=== PATIENT | male | born 1940 | race Caucasian/White ===

== ENCOUNTER → 2016-10-23 | Outpatient (CLI) | payer MEDICARE ==
[2014-10-01 10:26] VITALS: BP 113/76
[~2016-10-23] MED LIST: AMLO5TAB2 PO; ASPI-482 PO; OMEG500C3 PO; OMEP20CA9 PO; VALS160T3 PO
--- NOTE | 2016-10-23 09:28 | KCIC ---
PROCEDURE MRI lumbar spine without contrast. HISTORY Low back pain with bilateral quadriceps weakness, progressive leg weakness TECHNIQUE Sagittal and axial T1 and T2 and sagittal STIR images were acquired of the lumbar spine. Contrast: None COMPARISON None FINDINGS Lumbar vertebral body stature and AP alignment are preserved. Conus terminates at L1-L2. There is mild degenerative disc disease at L1-L2, mild disc desiccation at more inferior levels. There are anterior and posterior annular tears L2-3 and L4-5, posterior annular tear at L5-S1. There are hemangiomas of the L4, L1, and T12 vertebral bodies. There is no significant focal marrow edema. There is a 1.7 centimeter nonspecific soft tissue nodule on the left posteriorly in the subcutaneous fat at the level of L5. T12-L1: Spinal canal and neural foramina are adequate. L1-L2: There is negligible posterior bulge. Spinal canal and neural foramina are adequate. L2-3: There is negligible bulge. There is mild facet hypertrophic change and buckling of the ligamentum flavum. There is mild left lateral recess stenosis. Neural foramina are adequate. L3-4: There is moderate facet degenerative change and mild to moderate buckling of the ligamentum flavum. There is prominence of posterior epidural fat. There is negligible posterior bulge. There is minimal narrowing of the neural foramina bilaterally. There is mild narrowing of the far lateral recesses bilaterally. L4-5: There is mild to moderate buckling of the ligamentum flavum and mild facet hypertrophic change. There is minimal posterior bulge. There is mild neural foramina compromise bilaterally. There is mild narrowing of the far left lateral recess primarily from posteriorly. L5-S1: Spinal canal is adequate. Neural foramina are adequate. IMPRESSION 1. There is multilevel mild lateral recess stenosis as stated, no significant lumbar spinal stenosis. 2. There is mild degenerative disc disease L1-L2, mild disc desiccation at more inferior levels. There is mild spondylosis. 3. There is mild neural foramina compromise bilaterally at L3-4 and L4-5. 4. There is nonspecific nodule of the left posterior subcutaneous fat. Electronically signed by: Ramon Becker MD (Oct 23, 2016 09:27:10)
== END | disposition home or self-care (01) ==
LOC: KCIC MRI 08:21
PROVIDERS: ATTEND Internal Medicine
DX: M54.5 Low back pain (principal); R53.1 Weakness; M47.896 Other spondylosis, lumbar region; M51.36 Other intervertebral disc degeneration, lumbar region
CPT/HCPCS: 72148

== ENCOUNTER → 2017-01-24 | Outpatient (CLI) | payer MEDICARE ==
[2014-10-01 10:26] VITALS: BP 113/76
[~2017-01-24] MED LIST changes: +CONTRAST GIVEN MC PRN; +IOHEXOL 300 MG/ML 75 ML VIAL IV ONE
[2017-01-24 07:38] LABS: CREATININE 1.4 mg/dL (0.7-1.3); GFR 49.3
--- NOTE | 2017-01-24 09:38 | RAD ---
CT scan of the abdomen and pelvis without and with contrast (CT urogram protocol) 01/24/2017 Clinical history: Hematuria. Technique: Unenhanced, contiguous, 2 mm axial sections were obtained through the abdomen and pelvis. After the intravenous administration of 16 cc of Omnipaque, contiguous, 2 mm axial sections were obtained through the abdomen. Additionally contiguous, 2 mm axial sections were obtained through the abdomen and pelvis using a 10 minute delay. One or more of the following individualized dose reduction techniques were utilized for this study: 1. Automated exposure control. 2. Adjustment of the mA and/or kV according to patient size. 3. Use of iterative reconstruction technique. Findings: Images through the lung bases demonstrate mild cardiomegaly. Linear bands of subsegmental atelectasis are seen involving both lower lobes. On the unenhanced images no renal or ureteral calculus is seen. On the postcontrast images the liver, spleen, pancreas, and adrenal glands are within normal limits. Two small well-defined low-attenuation lesions are seen involving the midpole of the right kidney. These measure 1 cm in size. They most likely represent cysts. No focal abnormality of the left kidney is seen. There is no evidence of obstruction or duplication of either collecting system. The ureters are partially opacified with contrast on the delayed images. No focal abnormality of either ureter is seen. Mild to moderate scattered atherosclerotic plaque formation is seen involving the abdominal aorta. The abdominal aorta tapers normally. The gallbladder is well-distended. No free fluid or free air is seen within the abdomen. There is no evidence of bowel obstruction. The appendix is well visualized and is within normal limits. Images through the pelvis demonstrate the urinary bladder to be slightly contracted. It is partially filled with contrast on the delayed images. Mild diffuse wall thickening of the urinary bladder is seen which likely reflects hypertrophy related to bladder outlet obstruction. The prostate gland is enlarged likely related to BPH. It measures 6.6 x 5.3 x 5.2 cm in transverse, craniocaudal and AP dimensions. There is a moderate to large sized fat-containing right inguinal hernia which measures at least 9 cm in greatest craniocaudal dimensions. Calcifications are seen within the pelvis consistent with phleboliths. Minimal S shaped curvature of the thoracolumbar spine is seen. Degenerative changes are seen involving the lower thoracic and throughout the lumbar spine and both hips. Impression: 1. The prostate gland is enlarged likely related to BPH. 2. No acute abnormality is seen.
== END | disposition home or self-care (01) ==
LOC: CT 07:05
PROVIDERS: ATTEND Urology
DX: Z12.5 Encounter for screening for malignant neoplasm of prostate (principal); N40.0 Benign prostatic hyperplasia without lower urinary tract symptoms
CPT/HCPCS: 36415; 74178; 82565; G0103; Q9967

== ENCOUNTER 2017-08-21 09:37 | Observation (INO) | payer MEDICARE ==
[~2017-08-21] VITALS: Ht 190.5 cm; Wt 133.8 kg
[2017-08-21] VITALS (9 sets, daily range): BP systolic 97–130; BP diastolic 62–89
[~2017-08-21 09:37] MED LIST changes: +BUPIVACAINE-EPI 0.25%-1:200000 50 ML VIAL. ONE; -CONTRAST GIVEN MC PRN; +FINA1TAB3 PO; +HYDR-2758; +HYDROmorphone 2 MG/ML VIAL IV PRN; -IOHEXOL 300 MG/ML 75 ML VIAL IV ONE; +IV RINGERS,LACTATED 1000ML 1,000 ML IV SCH; +LIDOCAINE 1% PF 2 ML VIAL. ID PRN; +LOSA50TA6 PO; +METO-269 PO; +ONDANSETRON PF 4 MG/2 ML VIAL. IV PRN; +PROCHLORPERAZINE 10 MG/2 ML VIAL. IV PRN; +WARF10TA45 PO; +WARF7.5T48 PO; +fentaNYL PF VIAL 100 MCG/2 ML VIAL IV PRN
[2017-08-21] MEDS ORDERED: ONDANSETRON PF 4 MG/2 ML VIAL. ONE (09:55)
[2017-08-21] MEDS ORDERED: MIDAZOLAM HCL/PF 2 MG/2 ML VIAL. ONE (09:55)
[2017-08-21] MEDS ORDERED: ROCURONIUM 50 MG/5 ML VIAL. ONE (09:55)
[2017-08-21] MEDS ORDERED: DEXAMETHASONE SOD PHOS 20 MG/5 ML VIAL. ONE (09:55)
[2017-08-21] MEDS ORDERED: PROPOFOL 20 ML IV ONE (09:55)
[2017-08-21] MEDS ORDERED: LIDOCAINE 2% PF Vial for OR 5 ML VIAL. ONE (09:55)
[2017-08-21] MEDS ORDERED: fentaNYL PF VIAL 250 MCG/5 ML VIAL ONE (09:55)
[2017-08-21 11:02] LABS: INR 1.3 (0.8-1.1); PROTHROMBIN TIME PATIENT 15.8 SEC (11.7-14.0)
[2017-08-21] MEDS ORDERED: ROCURONIUM 100 MG/10 ML VIAL. ONE (11:35)
[2017-08-21] MEDS ORDERED: PHENYLEPHRINE in 0.9% NACL PF 1 MG/10 ML DISP.SYRIN. IV ONE (11:49)
[2017-08-21] MEDS ORDERED: GLYCOPYRROLATE 1 MG/5 ML VIAL. ONE (11:50)
[2017-08-21] MEDS ORDERED: NEOSTIGMINE 10 MG/10 ML VIAL. ONE (11:50)
[2017-08-21] MEDS ORDERED: SEVOFLURANE 61 TO 120 MINUTES. IH ONE (12:00)
--- NOTE | 2017-08-21 12:00 | PDOC4 ---
Operative Note Operative Note Date: 08/21/2017 Preoperative diagnosis: Recurrent right inguinal hernia Postoperative diagnosis: Same Procedure: Robotic-assisted laparoscopic right internal hernia repair with mesh Surgeon: Gelnn Specimen: None Dictation: Patient is a 76-year-old male who had a right inguinal hernia repair proximally 2 years ago he is describing some fullness in the scrotum underwent an ultrasound which showed a small recurrent right inguinal hernia with incarcerated fat. The procedure of robotic-assisted laparoscopic right inguinal hernia repair with mesh was explained to the patient detail was benefits were also discussed including bleeding infection injury to intra-abdominal contents possibly necessitating further or open operations alternatives to this procedure also discussed with the patient seemed understanding gave both verbal and written consent had procedure performed. Taken to the operating room placed in supine position general anesthesia was initiated once patient was asleep and intubated he was then placed in low lithotomy positioning and his abdomen was prepped and draped in usual sterile fashion using ChloraPrep. An area at the umbilicus injected quarter percent Marcaine with epinephrine incisions made lead blade scalpel varies needle was placed within the abdomen pneumoperitoneum was achieved once this complete a da Dariusz 8-1/2 mm port was placed and camera was placed within the abdomen was inspected. At this point a 8-1/2 mm da Dariusz port was placed in the left mid abdomen under direct visualization and one in the right mid abdomen under direct visualization. The da Dariusz robot was then brought in and docked to all ports and the surgeon went to the robotic console using a grasper and Endo Lizeth scissors the peritoneum was taken down on the right side creating a flap inferiorly past the hernia defect which was quite small but contain some adipose tissue which was reduced Pro sales clerk mesh was then placed over the hernia defect and the peritoneum was closed over the mesh with a running V lock 20 absorbable suture. The da Dariusz robot was undocked from all ports all ports removed the pneumoperitoneum was reduced skin incisions were closed 4 septic or Monocryl Mastisol Steri-Strips and Band-Aids were applied as dressings. Patient was waken expanded in the operative room taken to recovery in stable condition all sponge instrument needle counts listed as correct. Estimated blood loss 10 mL ARABELLA BRIDGES MD Aug 21, 2017 12:00
--- NOTE | 2017-08-21 12:02 | DISCH ---
DISCHARGE INSTRUCTIONS Condition on Discharge Condition on Discharge: Stable Activity After Discharge Activity Instructions for Disc: Avoid exertion Other activity instructions: No lifting>20lbs for 2 weeks Diet after Discharge Diet after Discharge: Regular Wound Incision Care Other wound/incision instructi: Nikky lr in 24 hours Contacting the after DC Call your doctor for: If your condition worsens Follow-Up Follow up with: Dr Bridges in 2 weeks ARABELLA BRIDGES MD Aug 21, 2017 12:02
[2017-08-21] MEDS ORDERED: LABETALOL 20 MG/4 ML DISP.SYRIN. ONE (12:12)
[2017-08-21] MEDS ORDERED: fentaNYL PF VIAL 100 MCG/2 ML VIAL ONE (12:18)
[2017-08-21] MEDS: MORPHINE SULFATE 2 MG/ML DISP.SYRIN. IV PRN ×2 (12:19→12:29)
[2017-08-21] MEDS ORDERED: HYDR-971 PO (12:35)
[2017-08-21] MEDS ORDERED: HYDROcodone/APAP 5/325MG 1 TAB TABLET PO ONE ×2 (12:45)
[2017-08-21] MEDS ORDERED: ALBUTEROL SULFATE 2.5 MG/3 ML NEBU. NEB ONE (13:00)
[2017-08-21] MEDS: oxyCODONE/APAP 5/325 1 TAB TABLET PO PRN ×2 (15:49→20:35)
[2017-08-21] MEDS ORDERED: WARFARIN 7.5 MG TABLET. PO SCH (16:00)
[2017-08-21] MEDS: LOSARTAN POTASSIUM 50 MG TABLET. PO SCH (20:34)
[2017-08-22 03:00] VITALS: BP 146/85
[2017-08-22 07:00] VITALS: BP 198/113
[2017-08-22] MEDS ORDERED: FINASTERIDE 1 MG PO SCH (09:00)
[2017-08-22] MEDS ORDERED: METOPROLOL SUCC 24HR ER 50 MG TAB.ER.24H. PO SCH (09:00)
[2017-08-22] MEDS ORDERED: ASPIRIN ENTERIC COATED 81 MG TABLET.DR. PO SCH (09:00)
[2017-08-22] MEDS: LOSARTAN POTASSIUM 50 MG TABLET. PO SCH (09:28)
[2017-08-22] MEDS: oxyCODONE/APAP 5/325 1 TAB TABLET PO PRN ×2 (09:33→13:47)
--- NOTE | 2017-08-22 10:51 | PDOC ---
TYREE HERNANDEZ BARREL FILLER 08/22/17 1051: SURGICAL PROGRESS NOTE Subjective had some emesis last night, improved today has not ambulated significant pain Vital Signs Vital Signs Date Time Temp Pulse Resp B/P (MAP) Pulse Ox O2 Delivery O2 Flow Rate FiO2 08/22/17 09:33 12 94 Room Air 08/22/17 09:28 59 198/113 08/22/17 07:00 97.7 97.7 08/22/17 03:00 2.0 I&O Intake and Output 08/23/17 07:00 Intake Total 450 ml Balance 450 ml Intake Oral 450 ml General: Alert, Oriented X3, Cooperative, No acute distress Abdomen: Soft, Other (ND, lap dressings dry ) Labs Laboratory Tests Test 08/21/17 10:28 Prothrombin Time 15.8 SEC (11.7-14.0) Prothromb Time International Ratio 1.3 (0.8-1.1) Assessment/Plan s/p robotic lap rih increase activity pain control--BP high, pain may be contributing home today if BP improved, ambulating, and pain managed Problems: ARABELLA BRIDGES MD 08/22/17 1405: SURGICAL PROGRESS NOTE Assessment/Plan Doing much better will D/C home. Problems: TYREE HERNANDEZ APRN Aug 22, 2017 10:51 ARABELLA BRIDGES MD Aug 22, 2017 14:05
[2017-08-22 10:59] VITALS: BP 184/107
[2017-08-25] MEDS ORDERED: WARFARIN 10 MG TABLET. PO SCH (16:00)
== END 2017-08-22 15:43 | disposition home or self-care (01) ==
LOC: SURG 09:37 → 4 NORTH 15:22
PROVIDERS: ADMIT Surgery; ATTEND Surgery
DX: K40.91 Unilateral inguinal hernia, without obstruction or gangrene, recurrent (principal)
CPT/HCPCS: 36415; 49565; 85610; C1781; G0378; G0379; J0690; J1100; J2250; J2270; J2370; J2405; J2704; J2710; J3010; J3490; J7613; J2001

== ENCOUNTER → 2018-07-31 | Outpatient (CLI) | payer MEDICARE ==
[~2018-07-31] MED LIST changes: -AMLO5TAB2 PO; +AMLO5TAB7 PO; -BUPIVACAINE-EPI 0.25%-1:200000 50 ML VIAL. ONE; +HYDR-971 PO; -HYDROmorphone 2 MG/ML VIAL IV PRN; -IV RINGERS,LACTATED 1000ML 1,000 ML IV SCH; -LIDOCAINE 1% PF 2 ML VIAL. ID PRN; -LOSA50TA6 PO; +LOSA50TA7 PO; -ONDANSETRON PF 4 MG/2 ML VIAL. IV PRN; -PROCHLORPERAZINE 10 MG/2 ML VIAL. IV PRN; -fentaNYL PF VIAL 100 MCG/2 ML VIAL IV PRN
--- NOTE | 2018-07-31 14:15 | RAD ---
MRI Lumbar Spine without contrast History: Low back pain, left leg weakness Technique: Multiplanar, multi sequential noncontrast MR imaging was performed of the lumbar spine. Contrast: None Comparison: October 23, 2016 Findings: Lumbar vertebral body stature and AP alignment are unchanged. Conus terminates at L1-2. There is again mild degenerative disc disease L1-2, other mild disc desiccation. There is no new significant marrow edema. There again hemangioma such as of T12, L1, L4, and L3. There is again nonspecific soft tissue nodule of the left posterior subcutaneous fat of the L5 level about 1.5 cm. L1-L2: Spinal canal and neural foramina are adequate. L2-L3: This level was not included on the axial images. Neural foramina are adequate. Spinal canal is not significantly narrowed. There is again facet degenerative change. L3-L4: There is again facet degenerative change and buckling of the ligamentum flavum as well as prominence of posterior epidural fat. There is again negligible disc osteophyte complex contributing to mild neural foramina compromise bilaterally. There is similar mild narrowing of the far lateral recesses. L4-L5: There is again facet degenerative change and buckling of the ligamentum flavum. There is again mild left greater than right neural foramina compromise. There is again mild narrowing of the far left lateral recess from posteriorly. L5-S1: Spinal canal and neural foramina are overall adequate. Impression: 1. Findings are similar compared with 2017 exam. There is again mild narrowing of the far left lateral recess at L4-5 and also mild narrowing of the far lateral recesses bilaterally at L3-4. There is mild neural foramina compromise bilaterally at L3-4 and L4-5. Electronically signed by: Tex Becker MD (07/31/2018 2:12 PM) [email or web address]
== END | disposition home or self-care (01) ==
LOC: MRI 12:32
PROVIDERS: ATTEND Internal Medicine
DX: M48.061 Spinal stenosis, lumbar region without neurogenic claudication (principal); M51.36 Other intervertebral disc degeneration, lumbar region; M79.89 Other specified soft tissue disorders; D18.09 Hemangioma of other sites
CPT/HCPCS: 72148

== ENCOUNTER → 2018-08-20 | Outpatient (CLI) | payer MEDICARE ==
--- NOTE | 2018-08-20 16:33 | RAD ---
MRI of the brain without contrast 08/20/2018 Clinical History: Right leg weakness with unsteady gait. Technique: Unenhanced T1-weighted sagittal and axial, T2-weighted axial and coronal and FLAIR, gradient echo and diffusion-weighted axial images of the brain were obtained. Findings: Comparison is made to patient's CT scan of the head dated 12/18/2015. There is generalized parenchymal atrophy. Patchy, confluent and multiple focal areas of increased signal intensity are seen within the periventricular and subcortical white matter of both cerebral hemispheres along with the mejia on the FLAIR and T2-weighted images consistent with areas of relatively extensive small vessel ischemic disease. No acute parenchymal abnormality is seen. No extra-axial fluid collection is seen. There is no MRI evidence of acute ischemia/infarction. Mild mucosal thickening is seen scattered throughout the paranasal sinuses. Normal flow voids are seen within the major vascular structures surrounding the brain parenchyma. Impression: No acute parenchymal abnormality is seen. Electronically signed by: Miguel Faria MD (08/20/2018 4:29 PM) [email or web address]
== END | disposition home or self-care (01) ==
LOC: MRI 10:37
PROVIDERS: ATTEND Internal Medicine
DX: I67.82 Cerebral ischemia (principal); R29.898 Other symptoms and signs involving the musculoskeletal system; I10 Essential (primary) hypertension; K21.9 Gastro-esophageal reflux disease without esophagitis; E78.5 Hyperlipidemia, unspecified; I48.0 Paroxysmal atrial fibrillation; R51 Headache; G89.29 Other chronic pain
CPT/HCPCS: 70551

== ENCOUNTER 2019-01-27 08:43 | Outpatient (CLI) | payer MEDICARE ==
[~2019-01-27 08:43] MED LIST changes: +AMLO5TAB10 PO; -AMLO5TAB7 PO; -HYDR-2758; +HYDR-2761; +HYDR-3164 PO; -HYDR-971 PO; +LOSA-73 PO; -LOSA50TA7 PO; +OMEP20CA10 PO; -OMEP20CA9 PO
[2019-01-27] MEDS ORDERED: IOHEXOL 180 MG/ML 10 ML VIAL. IT ONE (09:00)
[2019-01-27] MEDS ORDERED: CONTRAST GIVEN. MC PRN (09:00)
[2019-01-27 10:20] VITALS: BP 183/81
[2019-01-27 10:45] VITALS: BP 178/80
--- NOTE | 2019-01-27 10:58 | RAD ---
Lumbar myelogram, 01/27/2019: History: Back pain, lumbar stenosis Under local anesthesia, aseptic conditions and fluoroscopic guidance a lumbar puncture was performed at the upper L3 level utilizing a 25-gauge Nakul spinal needle. Good clear CSF flow was obtained following which 14 cc of Omnipaque 180 was injected in the thecal sac. The spinal needle was then removed and hemostasis obtained. Appropriate digital imaging was then performed. 4.6 minutes of fluoroscopy time was utilized. 14 fluoroscopic spot images were recorded. The patient tolerated the procedure well and was sent to CT in good condition. The following findings are delineated on the myelogram: 1. There are mild anterior extradural defects at L3-4 and L4-5. The width of the thecal sac is also mildly narrowed at these levels, more so at L3-4. 2. Standing flexion and extension lateral views show no significant subluxation or instability. 3. There is symmetric opacification of the nerve root sleeves in the lower lumbar spine. CT lumbar spine-post myelogram, 01/27/2019: Multidetector CT imaging was performed with multiplanar reconstructions produced. The following findings are delineated: 1. No fracture, subluxation or destructive bony lesion is seen. 2. There is only slight posterior annular bulging at L1-2. The central spinal canal and neural foramina are well maintained. 3. At L2-3 there is mild posterior disc bulging most prominent laterally on both sides. There is mild posterior ligamentous thickening due to facet joint arthropathy. The thecal sac measures 10 mm in AP diameter at the midline. The neural foramina are not stenotic. 4. At L3-4 there is mild broad-based posterior disc bulging. There are moderate hypertrophic degenerative changes involving the facet joints with associated posterior ligamentous thickening. The thecal sac narrows down to an AP diameter of 9 mm at the midline. There is mild inferior foraminal narrowing bilaterally. 5. At L4-5 there is mild to moderate posterior disc bulging. There are moderate degenerative changes involving the facet joints with moderate posterior ligamentous thickening. The combination of findings is causing mild narrowing of the thecal sac in a triangular configuration. The thecal sac measures 11 mm in AP diameter at the midline at this level. There is mild associated bilateral foraminal narrowing. 6. At L5-S1 there is mild posterior disc bulging. There are mild degenerative changes involving the facet joints. The central spinal canal and neural foramina are well maintained. 7. Small sclerotic foci in the right pedicle at L1 and in the posterior aspect of left pedicle at T12 are most likely bone islands. The incompletely visualized prostate gland is enlarged. IMPRESSION: 1. Mild to moderate scattered degenerative changes as described above, with dominant involvement of the facet joints. 2. Borderline central spinal stenosis at L3-4 and L4-5. 3. No significant disc herniation is evident. PQRS Compliance Statement: One or more of the following individualized dose reduction techniques were utilized for this examination: 1. Automated exposure control 2. Adjustment of the mA and/or kV according to patient size 3. Use of iterative reconstruction technique
--- NOTE | 2019-01-27 11:00 | NUR ---
Pt VSS. Pt denies any pain, headache, or SOB. Pt voided prior to discharge. Pt stated he would be taking his blood pressure meds when arriving home. Discharge instruction sheet for myelogram given to the pt and . Pt walked to outpatient entrance.
== END 2019-01-27 11:00 | disposition home or self-care (01) ==
LOC: EDSEX 08:43 → RAD 08:43
PROVIDERS: ATTEND Neurological Surgery
DX: M48.061 Spinal stenosis, lumbar region without neurogenic claudication (principal); M51.36 Other intervertebral disc degeneration, lumbar region; I10 Essential (primary) hypertension; I25.10 Atherosclerotic heart disease of native coronary artery without angina pectoris; I48.91 Unspecified atrial fibrillation; Z98.890 Other specified postprocedural states
CPT/HCPCS: 62304; 72132; Q9965; 72265

== ENCOUNTER → 2019-02-16 | Outpatient (CLI) | payer MEDICARE ==
[2019-01-27 10:45] VITALS: BP 178/80
--- NOTE | 2019-02-16 21:46 | PAIN ---
DATE OF SERVICE: 02/16/2019 INITIAL CONSULTATION FOR PAIN CLINIC CHIEF COMPLAINT: Low back pain. HISTORY OF PRESENT ILLNESS: This is a 78-year-old male who presents with history of pain for about a year, increasing with standing and walking. The patient reports the pain in the low back itself, not radiating to the lower extremities, worse with standing for more than about 15-20 minutes. The patient reports it is a throbbing pain that is intermittent in intensity and when he sits down, the pain goes away fairly quickly. Standing increases the pain. Also some weakness in his legs. He feels he cannot walk as far as he used to walk 2 miles a day and now he is having difficulty walking to his mailbox and back. The patient reports he feels like he is falling forward with ambulation, gradually increasing pain and he feels like he is off balance. The patient reports when he is standing at his counter at home in the kitchen or at his workshop at about a waist level height table that he is working on, the pain is at its worst. The patient reports it awakens him from sleep occasionally but not most nights, does not affect his bowel or bladder control but does affect his ability to walk with balance. The patient reports he has had physical therapy. He has had chiropractic treatment, exercise as well that he is currently doing and has not had a chiropractor recently but about a year ago, which was helpful and also physical therapy, which he thought was helpful in 2018 and 2019 as well, nothing recently. The patient did have a CT scan and myelogram of lumbar spine showing [id number] scattered degenerative changes with dominant involving the facet joints, borderline central stenosis at L3-L4 and L4-L5, posterior disk bulging at L5-S1 as well as L4-L5 and L3-L4. The patient rates his disability rating from 0 to 10, 10 being the worst, 2 with family and home responsibilities, 0 with recreation, 1 with social activity, 0 with sexual behavior, self-care or life support activities and most complaints with standing and walking. PAST MEDICAL HISTORY: Significant for hypertension, atrial fibrillation, coronary artery disease, dizziness and arthritis. PAST SURGICAL HISTORY: Previous surgery includes tonsillectomy, vasectomy, hernia repairs x 2, prostate biopsy and a rotator cuff repair in 2010. CURRENT MEDICATIONS: Include losartan, metoprolol, amlodipine, daily baby aspirin, fish oil and Coumadin. ALLERGIES: The patient has no known drug allergies. FAMILY HISTORY: Significant for hypertension, diabetes and coronary artery disease. SOCIAL HISTORY: The patient does not drink alcohol; does not smoke and does not use any illegal, illicit or recreational drugs. He is and lives with his spouse, lives locally in [place], [place]. Reports he reports he is currently retired. REVIEW OF SYSTEMS: The patient's review of systems is positive for those items mentioned in history of present illness. All systems reviewed and otherwise negative. It is complete, full and well documented on the patient's chart. PHYSICAL EXAMINATION: VITAL SIGNS: Today, the patient's blood pressure is 148/90, pulse 53, respirations are 18 and temperature 97.9 degrees Fahrenheit. Height is 6 feet 3 inches and weight is 289 pounds. GENERAL: The patient is awake, alert, oriented, appropriate, very pleasant demeanor. HEENT: Head shows normocephalic and atraumatic. Extraocular movements are intact and symmetrical. Oral cavity: Mucous membranes moist and pink. Dentition is intact. NECK: Shows anterior throat supple without palpable lymphadenopathy noted. Swallow reflex symmetrical. CHEST: Shows normal on inspection. Breath sounds clear to auscultation bilaterally. HEART: Shows S1 and S2 clear. No murmurs auscultated. ABDOMEN: Soft, nontender and nondistended. No palpable organomegaly is noted. No rebound or guarding demonstrated. BACK: Shows spine grossly in the midline. Normal-appearing cervical lordotic curvature, thoracic kyphotic curvature and lumbar lordotic curvature. Lumbar paraspinous muscle shows symmetrical on inspection. On palpation shows some moderate tenderness diffusely throughout the upper, middle and lower distribution of the paraspinous muscles. No tenderness over the spinous processes over the sacrum or sacroiliac regions. The patient has good rotational motion but with moderate tenderness in right and left lateral rotation past 10 degrees with significant tenderness with the extension of the lumbar spine at 10 degrees with axial load in the low back but better with forward flexion. EXTREMITIES: The patient's lower extremities show deep tendon reflexes at 1+/4 in the patellar and tendo-calcaneus tendons are equal and symmetrical. Motor exam is strong with 5/5 dorsiflexion and extension, approximately 4/5 with quadriceps and hamstring flexion but symmetrical. Peripheral pulses are 1+ posterior tibial. No peripheral edema is noted. Straight leg raise noted to be negative bilaterally. Gaenslen's and Santos's maneuvers are negative for reproduction of pain bilaterally as well. The patient's lower extremities are warm and dry to touch, equal in color and appearance. The patient is able to stand, stand on his toes without significant difficulty or loss of balance, walks with a normal appearing gait for short distance in the office, not using assistive device such as canes or walkers to ambulate. SKIN: Shows warm and dry, good turgor. No edema. No sores, rashes or bruising throughout. IMPRESSION: 1. This is a 78-year-old male with approximate 1-year history of increasing pain, low back, worse with standing and walking and extension of the lumbar spine. 2. CT scan myelogram as noted. 3. Coronary artery disease, atrial fibrillation with anticoagulation therapy. 4. Arthritis. PLAN: Options were discussed with the patient including conservative medical management, physical therapy, interventional techniques and he has done physical therapy significantly as well as chiropractic treatment. He is interested in pursuing interventional techniques. We discussed lumbar facet joint injection using description as well as anatomical models to describe the procedure. We will check with his document advisor first to see if it is cleared to hold his Coumadin for up to 5 days with INR pending. It is deemed safe and appropriate, however, the patient to return and plan on lumbar facet joint injections at that time bilaterally. MAZIN ARIAS MD DR: BRADY/shantell JOB#: [id number] / [id number] Kristian Carrion MD
== END | disposition home or self-care (01) ==
LOC: PNCL 09:33
PROVIDERS: ATTEND Anesthesiology
DX: M19.90 Unspecified osteoarthritis, unspecified site (principal); M54.5 Low back pain; I10 Essential (primary) hypertension; E11.9 Type 2 diabetes mellitus without complications; I25.10 Atherosclerotic heart disease of native coronary artery without angina pectoris; I48.91 Unspecified atrial fibrillation
CPT/HCPCS: G0463

== ENCOUNTER → 2019-03-22 | Outpatient (CLI) | payer MEDICARE ==
[~2019-03-22] MED LIST changes: +BUPIVACAINE MPF 0.25% 10 ML VIAL. ONE; +IOHEXOL 180 MG/ML 10 ML VIAL. ONE; +LIDOCAINE 1% PF 2 ML VIAL. ONE; +methylPREDNISolone ACETATE 40 MG/ML VIAL. ONE; +methylPREDNISolone ACETATE 80 MG/ML VIAL. ONE
--- NOTE | 2019-03-22 22:27 | PAIN ---
DATE OF SERVICE: 03/22/2019 PROGRESS NOTE FOR PAIN CLINIC: DIAGNOSES: Lumbar degenerative disk disease and lumbosacral spondylosis. HISTORY OF PRESENT ILLNESS: The patient is a 78-year-old male who returns for followup status post previous evaluation and holding his Coumadin after clearance from his primary physician's office 5 days now with an INR of 1.2 and he brings that with a home monitoring device, which is digital read out. The patient reports no new motor or sensory deficits, still significant pain in the low back bilaterally, somewhat worse on the left than the right, but present bilaterally. The patient reports over the past week it has been anywhere from 0-10 on a scale of 10, worse with standing and after about 15-20 minutes, he has to sit down for about 5 minutes and the pain dissipates significantly. The patient reports it is awakening him from sleep if he lies on his left side as well. The patient reports no new motor or sensory deficits, no new bowel or bladder incontinence or other complaints. Again, INR 1.2 today and he would like to proceed with bilateral facet joint injections as scheduled. PHYSICAL EXAMINATION: VITAL SIGNS: The patient's blood pressure is 143/90, pulse 65, respirations 18, temperature 97.7 degrees Fahrenheit, height 6 feet 3 inches and weight is 289 pounds. GENERAL: The patient is awake, alert, oriented, appropriate, very pleasant demeanor. HEENT: Head shows normocephalic, atraumatic. Extraocular movements are intact and symmetrical. Oral cavity: Mucous membranes moist and pink. Dentition is intact. NECK: Shows anterior throat supple without palpable lymphadenopathy noted. Swallow reflex symmetrical. CHEST: Shows normal with inspection. Breath sounds clear to auscultation bilaterally. HEART: Shows S1, S2 clear. No murmurs auscultated. ABDOMEN: Soft, nontender, nondistended. No palpable organomegaly is noted. No rebound or guarding demonstrated. BACK: Shows spine grossly in the midline. Normal appearing thoracic kyphosis, some minor flattening of lumbar lordotic curvature. Lumbar paraspinous muscle shows symmetrical on inspection. On palpation shows some moderate tenderness diffusely, but only diffusely bilaterally without radiation. The patient has good rotational motion with some moderate tenderness, more to the left than the right with greater than 10 degrees, right and left lateral rotation, also extension exacerbates the pain significantly, but better with forward flexion. EXTREMITIES: Lower extremities show deep tendon reflexes 1+ in the patellar and tendo-calcaneus tendons. Motor exam is strong with 5/5 dorsiflexion, extension, quadriceps and hamstring flexion equal. Peripheral pulses are 1+ posterior tibia. No peripheral edema is noted. Options were discussed with the patient. The patient's old chart was reviewed as his current medication regimen updated. Current review of systems updated today as well. We will proceed with bilateral L3-L4, L4-L5 and L5-S1 facet joint injections with fluoroscopic guidance. Risks were again discussed including, but not limited to bleeding, infection, possibility of epidural hematoma, subsequent neurological compromise, dural puncture headaches, spinal cord and/or nerve damage, side effects of steroid medication and poor results regarding pain control. The patient understands and wished to proceed. The patient will return to clinic in approximately 2 weeks for followup, was counseled as to return appointment, activity level and side effects to be aware of. The patient will restart his Coumadin later this evening as directed as well. DIAGNOSES: Lumbar degenerative disk disease and lumbosacral spondylosis. PROCEDURE: Lumbar L3-L4, L4-L5 and L5-S1 facet joint injections, bilateral under sterile prep and drape using local anesthetic. MEDICATION INJECTED: A total of 6 mL of 0.25% bupivacaine, 3 mL of contrast and 120 mg total of Depo-Medrol. CONDITION AT DISCHARGE: Stable. The patient tolerated the procedure well, had no complications. MAZIN ARIAS MD DR: BRADY/shantell JOB#: [id number] / [id number]
== END ==
LOC: PNCL 10:50
PROVIDERS: ATTEND Anesthesiology
DX: M51.36 Other intervertebral disc degeneration, lumbar region (principal); M47.816 Spondylosis without myelopathy or radiculopathy, lumbar region; Z79.82 Long term (current) use of aspirin
CPT/HCPCS: 64493; 64494; 64495; J1030; J1040; J3490; Q9965

== ENCOUNTER → 2019-04-07 | Outpatient (CLI) | payer MEDICARE ==
[~2019-04-07] MED LIST changes: -BUPIVACAINE MPF 0.25% 10 ML VIAL. ONE; -IOHEXOL 180 MG/ML 10 ML VIAL. ONE; -LIDOCAINE 1% PF 2 ML VIAL. ONE; -methylPREDNISolone ACETATE 40 MG/ML VIAL. ONE; -methylPREDNISolone ACETATE 80 MG/ML VIAL. ONE
--- NOTE | 2019-04-07 11:42 | RAD ---
MRI of the brain without contrast 04/07/2019 Clinical History: Unsteady gait. Technique: Unenhanced T1-weighted sagittal and axial, T2-weighted axial and coronal and FLAIR, gradient echo and diffusion-weighted axial images of the brain were obtained. Findings: Comparison study is dated 08/20/2018. There is generalized parenchymal atrophy. Patchy, confluent and multiple focal areas of increased signal intensity are seen within the periventricular and subcortical white matter of both cerebral hemispheres along with the mejia on the FLAIR and T2-weighted images consistent with areas of fairly extensive small vessel ischemic disease. These have not significantly changed. No acute parenchymal abnormality is seen. No extra-axial fluid collection is seen. There is no MRI evidence of acute ischemia/infarction. Mild mucosal thickening in seen scattered throughout the paranasal sinuses. A 1.3 cm likely benign-appearing nodule is seen involving the anterior aspect of the right parotid gland, unchanged. Normal flow voids are seen within the major vascular structures surrounding the brain parenchyma. Impression: No acute parenchymal abnormality is seen. Electronically signed by: Miguel Faria MD (04/07/2019 11:39 AM) [id number]
== END | disposition home or self-care (01) ==
LOC: MRI 09:41
PROVIDERS: ATTEND Internal Medicine
DX: G31.9 Degenerative disease of nervous system, unspecified (principal)
CPT/HCPCS: 70551

== ENCOUNTER → 2019-04-12 | Outpatient (CLI) | payer MEDICARE ==
[~2019-04-12] MED LIST changes: +BUPIVACAINE MPF 0.25% 10 ML VIAL. ONE; +IOHEXOL 180 MG/ML 10 ML VIAL. ONE; +methylPREDNISolone ACETATE 40 MG/ML VIAL. ONE; +methylPREDNISolone ACETATE 80 MG/ML VIAL. ONE
--- NOTE | 2019-04-12 19:12 | PAIN ---
DATE OF SERVICE: 04/12/2019 PROGRESS NOTE FOR PAIN CLINIC DIAGNOSIS: Lumbar degenerative disk disease with lumbar and lumbosacral spondylosis. HISTORY OF PRESENT ILLNESS: The patient is a 78-year-old male who returns for followup status post bilateral L4-L5 and L5-S1 facet joint injections. The patient reports it is better for a few days overall and about 20% improved. The patient reports the first couple of days, it was much improved in the low back itself, worse with standing now, especially when he is standing at the kitchen counter or fixing a meal. He notices this is significant. He can sit down and the pain is gone almost after 1 or 2 minutes. The patient reports, I cannot stand for more than 5 minutes without the pain returning. At the first few days after the injection, it was better, but still he is only able to stand for about 10-15 minutes 5. The patient reports no new motor or sensory deficits, no new bowel or bladder incontinence, still significant pain in the low back, described as aching, severe at times, shooting across the low back and occasionally into the posterior gluteus bilaterally. The patient reports the pain is an 8 on a scale of 10 at its average, 10 at its worst in the last week and a 0 at its least when he is sitting, is an 8 today. The patient reports no new motor or sensory deficits, no new bowel or bladder incontinence or other complaints. PHYSICAL EXAMINATION: VITAL SIGNS: The patient's blood pressure is 126/83, pulse 61, respirations 16, temperature 97.9 degrees Fahrenheit, weight 285 pounds. GENERAL: The patient is awake, alert, oriented, appropriate, very pleasant demeanor. HEENT: Shows normocephalic, atraumatic. Extraocular movements are intact and symmetrical. Oral cavity: Mucous membranes are moist and pink. Dentition is intact. NECK: Shows anterior throat supple without palpable lymphadenopathy noted. Swallow reflex is symmetrical. CHEST: Shows normal on inspection. Breath sounds are clear to auscultation bilaterally. HEART: Shows S1, S2 clear. No murmurs auscultated. ABDOMEN: Soft, nontender, nondistended. No palpable organomegaly is noted. No rebound or guarding demonstrated. BACK: Shows spine grossly in the midline. Normal appearing thoracic kyphosis and lumbar lordotic curvature is slightly flattened. Lumbar paraspinous muscle shows symmetrical on inspection, on palpation shows some moderate tenderness diffusely bilaterally, but only diffusely without radiation. The patient has good rotational motion with some moderate tenderness with extension, but also with forward flexion, but not with right or left lateral rotation on exam today. EXTREMITIES: The patient's lower extremities show deep tendon reflexes 1+ in the patellar and tendo calcaneus tendons. Motor exam is strong with 5/5 dorsiflexion, extension, quadriceps and hamstring flexion and symmetrical. Peripheral pulses are 1+ posterior tibia. No peripheral edema is noted. Options were discussed with the patient. The patient's old chart was reviewed as his current medication regimen updated. Current review of systems updated today as well. We will proceed with repeat L4-L5 and L5-S1 facet joint injections today with fluoroscopic guidance. Risks were again discussed including, but not limited to bleeding, infection, possibility of epidural hematoma, subsequent neurological compromise, dural puncture, headaches, spinal cord and/or nerve damage, side effects of steroid medication and poor results regarding pain control. The patient understands and wished to proceed. The patient will return to clinic in approximately 2 weeks for followup, was counseled as to return appointment, activity level and side effects to be aware of. DIAGNOSIS: Lumbar and lumbosacral spondylosis. PROCEDURE: Lumbar L4-L5 and L5-S1 facet joint injections bilaterally under sterile prep and drape using local anesthetic. MEDICATION INJECTED: A total of 4 mL of 0.25% bupivacaine and 2 mL of contrast and 120 mg Depo-Medrol total. CONDITION AT DISCHARGE: Stable. The patient tolerated the procedure well, had no complications. MAZIN ARIAS MD DR: BRADY/shantell JOB#: [id number] / [id number]
== END ==
LOC: PNCL 09:40
PROVIDERS: ATTEND Anesthesiology
DX: M47.817 Spondylosis without myelopathy or radiculopathy, lumbosacral region (principal); M51.36 Other intervertebral disc degeneration, lumbar region
CPT/HCPCS: 64493; 64494; J1030; J1040; J3490; Q9965

== ENCOUNTER → 2019-05-06 | Outpatient (CLI) | payer MEDICARE ==
[~2019-05-06] MED LIST changes: -BUPIVACAINE MPF 0.25% 10 ML VIAL. ONE
--- NOTE | 2019-05-06 16:52 | PAIN ---
DATE OF SERVICE: 05/06/2019 PROGRESS NOTE FOR PAIN CLINIC DIAGNOSES: Lumbar degenerative disk disease, lumbar and lumbosacral spondylosis. HISTORY OF PRESENT ILLNESS: The patient is a 78-year-old male who returns for followup status post bilateral L4-L5 and L5-S1 facet joint injections x 2 with only minimal decrease in pain. The patient reports still significant pain in the low back with radiation to the lateral thighs and into the anterior thighs occasionally, worse with walking and standing with sitting or lying down, does not awaken him from sleep. He has 0 pain with sitting or lying down, but when he stands and walks after about 5-10 minutes, the pain increases, for about 15 minutes he has to sit down to decrease the pain significantly. The patient reports it is radiating into the posterior gluteus, lateral thighs, anterior thighs, but mostly across the low back. The patient reports it is radiating, severe aching. The patient reports it is a 10 on a scale of 10 at its worst, 9 on average, 1 at its least and is at 9 with standing today. PHYSICAL EXAMINATION: VITAL SIGNS: The patient's blood pressure 137/88, pulse 61, respirations 18 and temperature 97.5 degrees Fahrenheit. Height 6 feet 3 inches, weighs 263 pounds. GENERAL: The patient is awake, alert, oriented, appropriate and very pleasant demeanor. HEENT: Head is normocephalic, atraumatic. Extraocular movements are intact and symmetrical. Oral cavity: Mucous membranes are moist and pink. Dentition is intact. NECK: Shows anterior throat supple without palpable lymphadenopathy noted. Swallow reflex symmetrical. CHEST: Shows normal with inspection. Breath sounds clear to auscultation bilaterally. HEART: Shows S1, S2 clear. No murmurs auscultated. ABDOMEN: Soft, nontender and nondistended. No palpable organomegaly is noted. No rebound or guarding demonstrated. BACK: Shows spine grossly in the midline. Slight exaggeration of thoracic kyphosis and minor flattening of lumbar lordotic curvature. Lumbar paraspinous muscle shows symmetrical on inspection with palpation shows some moderate tenderness diffusely bilaterally, but only with fairly firm palpation. The patient has good rotational motion of lumbar spine. EXTREMITIES: Lower extremities show deep tendon reflexes at 1+ in the patellar and tendo-calcaneus tendons. Motor exam is strong with 5/5 dorsiflexion and extension. Peripheral pulses are 1+. No peripheral edema is noted. Options were discussed with the patient. The patient's old chart was reviewed as his current medication regimen updated. Current review of systems updated today as well. We will proceed with a lumbar epidural steroid injection today with fluoroscopic guidance. Risks were discussed including but not limited to bleeding, infection, possibility of epidural hematoma, subsequent neurologic compromise, dural puncture, headaches, spinal cord and/or nerve damage, side effects of steroid medication and poor results regarding pain control. The patient understands and wished to proceed. The patient will return to clinic in approximately 2 weeks for followup, was counseled on return appointment, activity level and side effects to be aware of. DIAGNOSES: Lumbar degenerative disk disease and lumbar spondylosis. PROCEDURE: Lumbar epidural steroid injection, translaminar approach at L4-L5 level using C-arm fluoroscopic guidance under sterile prep and drape using local anesthetic. MEDICATION INJECTED: A total of 120 mg Depo-Medrol plus 10 mL of preservative-free normal saline and 2 mL of contrast. CONDITION AT DISCHARGE: Stable. The patient tolerated procedure well, had no complications. MAZIN ARIAS MD DR: BRADY/shantell JOB#: [id number] / [id number]
== END ==
LOC: PNCL 09:42
PROVIDERS: ATTEND Anesthesiology
DX: M51.36 Other intervertebral disc degeneration, lumbar region (principal); M47.817 Spondylosis without myelopathy or radiculopathy, lumbosacral region
CPT/HCPCS: 62323; J1030; J1040; Q9965

== ENCOUNTER → 2019-05-27 | Outpatient (CLI) | payer MEDICARE ==
--- NOTE | 2019-05-27 09:42 | PAIN ---
DATE OF SERVICE: 05/27/2019 PROGRESS NOTE FOR PAIN CLINIC DIAGNOSES: Lumbar spondylosis and lumbosacral spondylosis and lumbar degenerative disk disease. HISTORY OF PRESENT ILLNESS: The patient is a 78-year-old male who returns for followup status post bilateral facet joint injections x 2, also lumbar epidural steroid injection, all with only minimal decrease in pain. The patient has been off his Coumadin now for 5 days and INR today of 1.1. The patient reports still significant pain in the low back and mostly just with walking and standing. The patient reports after about 10-15 minutes, with standing and walking, he has to sit down because the pain becomes too unbearable and is making his legs feel weak. The patient reports otherwise while he is sitting, lying down, he has no pain essentially at all. The patient reports the pain in the back is sharp, radiating, becoming more constant, worse in the legs when he is walking. The patient reports the pain is a 10 on a scale of 10 at its worst, 0 at its least when he sits down, he has to sit down or stop the pain, is only able to walk 5-10 minutes on most days, sometimes 10-15. The patient reports no new motor or sensory deficits, no new bowel or bladder incontinence. PHYSICAL EXAMINATION: VITAL SIGNS: The patient's blood pressure 110/80, pulse 61, respirations 16, temperature is 97.6 degrees Fahrenheit, weight is 284 pounds. GENERAL: The patient is awake, alert, oriented, appropriate, very pleasant demeanor. HEENT: Shows normocephalic, atraumatic. Extraocular movements are intact and symmetrical. Oral cavity: Mucous membranes moist and pink. Dentition is intact. NECK: Shows anterior throat supple without palpable lymphadenopathy noted. Swallow reflex symmetrical. CHEST: Shows normal on inspection. Breath sounds are clear to auscultation bilaterally. HEART: Shows S1, S2 clear. No murmurs auscultated. ABDOMEN: Soft, nontender, nondistended. No palpable organomegaly is noted. No rebound or guarding demonstrated. BACK: Shows spine grossly in the midline. Normal appearing thoracic kyphosis and lumbar lordotic curvature. Lumbar paraspinous muscle shows symmetrical on inspection, with palpation shows some moderate tenderness throughout the upper, middle and lower distribution of paraspinous muscles, but only diffusely without significant radiation. The patient's lower extremities show deep tendon reflexes at 1+ in the patellar and tendo calcaneus tendons. Motor exam is strong with 5/5 dorsiflexion, extension, quadriceps and hamstring flexion and symmetrical as well. Peripheral pulses are 1+ posterior tibial. No peripheral edema is noted. Options were discussed with the patient. The patient's old chart was reviewed as his current medication regimen updated. Current review of systems updated today as well. We will proceed with a second lumbar epidural steroid injection today with fluoroscopic guidance. Risks were again discussed including, but not limited to bleeding, infection, possibility of epidural hematoma, subsequent neurological compromise, dural puncture, headaches, spinal cord and/or nerve damage, side effects of steroid medication and poor results regarding pain control. The patient understands and wished to proceed. The patient will return to clinic in approximately 2 weeks for followup. He was counseled as to return appointment, activity level and side effects to be aware of. DIAGNOSES: Lumbar degenerative disk disease and lumbar spondylosis. PROCEDURE: Lumbar epidural steroid injection, translaminar approach at L4-L5 level using C-arm fluoroscopic guidance under sterile prep and drape using local anesthetic. MEDICATION INJECTED: A total of 120 mg Depo-Medrol plus 10 mL of preservative-free normal saline and 2 mL of contrast. CONDITION AT DISCHARGE: Stable. The patient tolerated procedure well, had no complications. MAZIN ARIAS MD DR: BRADY/shantell JOB#: [id number] / [id number]
== END ==
LOC: PNCL 08:32
PROVIDERS: ATTEND Anesthesiology
DX: M51.36 Other intervertebral disc degeneration, lumbar region (principal); M47.817 Spondylosis without myelopathy or radiculopathy, lumbosacral region
CPT/HCPCS: 62323; J1030; J1040; Q9965

== ENCOUNTER → 2019-07-05 | Outpatient (CLI) | payer MEDICARE ==
[~2019-07-05] MED LIST changes: -IOHEXOL 180 MG/ML 10 ML VIAL. ONE; -methylPREDNISolone ACETATE 40 MG/ML VIAL. ONE; -methylPREDNISolone ACETATE 80 MG/ML VIAL. ONE
--- NOTE | 2019-07-05 11:53 | PAIN ---
DATE OF SERVICE: 07/05/2019 DIAGNOSIS: Lumbar and lumbosacral spondylosis with lumbar degenerative disk disease. PROGRESS NOTE FOR PAIN CLINIC HISTORY OF PRESENT ILLNESS: The patient is a 78-year-old male who returns for followup status post lumbar epidural steroid injection x 2 as well as facet joint injections x 2, all with very minimal decrease in pain even for a few days. The patient reports the pain is significant only with standing and walking in the low back and into the lower extremities, mostly in the back itself. The patient reports it is a 10 on a scale of 10 at its worst over the last past week, 9 on average, 0 with sitting, does not awaken him from sleep. Classically stands and walks for about 5-6 minutes and then the pain is too much in his back and legs where he must sit down and relax. After about 4-5 minutes, the pain subsides almost completely. The patient reports even when he is standing in the morning shaving at the bathroom sink, he cannot stand long enough to shave without having to sit down and rest. The patient reports no new motor or sensory deficits, no new bowel or bladder incontinence. We discussed spinal cord stimulator with him on his last visit, given his inflammation. He has looked over this now and reports he is not interested in pursuing this. We discussed possible neurosurgical reevaluation to see if there may be some options with posterior decompression of the stenosis. PHYSICAL EXAMINATION: VITAL SIGNS: The patient's blood pressure is ____, pulse 57, respirations 18, temperature is 98.6 degrees Fahrenheit, height is 6 feet 2 inches and weight is 283 pounds. GENERAL: The patient is awake, alert, oriented, appropriate. HEENT: Head is normocephalic, atraumatic. Extraocular movements are intact and symmetrical. Oral cavity: Mucous membranes moist and pink. Dentition is intact. NECK: Shows anterior throat supple without palpable lymphadenopathy noted. Swallow reflex symmetrical. CHEST: Shows normal on inspection. Breath sounds clear to auscultation bilaterally. HEART: Shows S1, S2 clear. No murmurs auscultated. ABDOMEN: Soft, nontender, nondistended. BACK: Shows spine grossly in the midline. Normal appearing thoracic kyphosis and some minor flattening of lumbar lordotic curvature. Lumbar paraspinous muscle shows symmetrical on inspection. With palpation, shows some very mild tenderness along the lower lumbar distribution without radiation. The patient has good rotational motion of lumbar spine with some moderate tenderness with extension, but not with forward flexion. EXTREMITIES: Lower extremities show deep tendon reflexes 1+ in the patellar and tendo calcaneus tendons are equal. Motor exam is 5/5 with dorsiflexion, extension, quadriceps and hamstring flexion and symmetrical. Peripheral pulses are 1+ posterior tibial. No peripheral edema is noted bilaterally. PLAN: Options were discussed with the patient. The patient's old chart was reviewed as his current medication regimen updated. Current review of systems updated today as well and we will hold on any further injections at this time as the patient is not getting much relief. He would like to talk to his neurosurgeon. We will make those arrangements. Also, has followup with his neurologist as he reports some difficulty with peripheral neuropathy as well as coordination and balance. I encouraged him to keep all these appointments. The patient will follow up at this time on as needed basis. MAZIN ARIAS MD DR: BRADY/shantell JOB#: [id number] / [id number]
== END | disposition home or self-care (01) ==
LOC: PNCL 09:30
PROVIDERS: ATTEND Anesthesiology
DX: M51.36 Other intervertebral disc degeneration, lumbar region (principal); M47.817 Spondylosis without myelopathy or radiculopathy, lumbosacral region; G62.9 Polyneuropathy, unspecified
CPT/HCPCS: G0463

== ENCOUNTER → 2019-09-16 | Outpatient (CLI) | payer MEDICARE ==
[~2019-09-16] MED LIST changes: +OMEP-229 PO; -OMEP20CA10 PO
--- NOTE | 2019-09-16 16:27 | [facility] ---
MRI of the lumbar spine without contrast 09/16/2019 CLINICAL HISTORY: Chronic low back pain with leg weakness. TECHNIQUE: Unenhanced T1-weighted and T2-weighted sagittal and axial and inversion recovery sagittal images of the lumbar spine were obtained. FINDINGS: Comparison is made to a CT lumbar myelogram dated 01/27/2019. Additional comparison is made to a MRI of the lumbar spine dated 07/31/2018. Mild S-shaped curvature of the thoracolumbar spine is seen. Degenerative signal changes are seen involving all of the disks of the lumbar spine. Degenerative signal changes are seen within the marrow surrounding these discs. Hemangiomas are seen involving the lower thoracic and scattered throughout the lumbar vertebral bodies. These measure 3 mm to 2 cm in size. The conus medullaris is normal morphology, position, and signal characteristics. At the L1-2 disc space there is a mild generalized disc bulge. Degenerative changes are seen involving the facet joints bilaterally. There is mild ligamentum flavum hypertrophy bilaterally. These findings when combined do not result in significant central spinal canal or neural foraminal stenosis. At the L2-3 disc space there is a mild generalized disc bulge. This is eccentric to the left. Degenerative changes are seen involving the facet joints bilaterally. There is moderate ligamentum flavum hypertrophy bilaterally. There is prominence of the posterior epidural fat. These findings when combined result in mild central spinal canal stenosis. No neural foraminal stenosis is seen. At the L3-4 disc space there is a mild to moderate generalized disc bulge. Degenerative changes are seen involving the facet joints bilaterally. There is moderate ligamentum flavum hypertrophy bilaterally. There is prominence of the posterior epidural fat. There are small facet joint effusions bilaterally. These findings when combined result in mild to moderate central spinal canal stenosis. No neural foraminal stenosis is seen. At the L4-5 disc space there is a mild to moderate generalized disc bulge. Degenerative changes are seen involving the facet joints bilaterally. There are small facet joint effusions bilaterally. There is moderate ligamentum flavum hypertrophy bilaterally. There is prominence of the posterior epidural fat. These findings when combined result in mild central spinal canal stenosis. No neural foraminal stenosis is seen. At the L5-S1 disc space there is a mild generalized disc bulge. Degenerative changes are seen involving the facet joints bilaterally. There is mild ligamentum flavum hypertrophy bilaterally. These findings when combined do not result in significant central spinal canal or neural foraminal stenosis. The degenerative changes have progressed slightly since the patient's previous MRI. IMPRESSION: The changes of degenerative disc disease are seen throughout the lumbar spine. These findings result in mild central spinal canal stenosis at L2-3 and L4-5 and mild to moderate central spinal canal stenosis at L3-4. No neural foraminal stenosis is seen. Electronically signed by: Miguel Faria MD (09/16/2019 4:24 PM) [email or web address]
== END | disposition home or self-care (01) ==
LOC: KCIC MRI 12:44
PROVIDERS: ATTEND Psychiatry & Neurology Neurology with Special Qualifications in Child Neurology
DX: M51.17 Intervertebral disc disorders with radiculopathy, lumbosacral region (principal); M51.16 Intervertebral disc disorders with radiculopathy, lumbar region; M48.061 Spinal stenosis, lumbar region without neurogenic claudication; G89.29 Other chronic pain
CPT/HCPCS: 72148

== ENCOUNTER → 2020-01-11 | Outpatient (CLI) | payer MEDICARE ==
[2020-01-06 11:00] VITALS: BP 159/99
[~2020-01-11] MED LIST changes: -OMEP-229 PO; +OMEP20CA16 PO
--- NOTE | 2020-01-11 09:41 | KCIC ---
Examination: CT HEAD WO CONTRAST History: Subdural hematoma follow-up Comparison/Correlation: 01/04/2020 and 01/05/2020 Findings: Axial images of the head were obtained without contrast. Atrophy and chronic changes of white matter noted. No midline shift or mass effect. The parafalcine subdural hematoma the anterior frontal region previously seen is less evident currently. No new hemorrhage identified. Bony structures are unremarkable. Impression: Decrease parafalcine subdural hematoma. PQRS Compliance Statement: One or more of the following individualized dose reduction techniques were utilized for this examination: 1. Automated exposure control 2. Adjustment of the mA and/or kV according to patient size 3. Use of iterative reconstruction technique Electronically signed by: Maxwell Bautista MD (01/11/2020 9:39 AM) [id number]
== END | disposition home or self-care (01) ==
LOC: KCIC CT 08:54
PROVIDERS: ATTEND Neurological Surgery
DX: S06.5X0A Traumatic subdural hemorrhage without loss of consciousness, initial encounter (principal); G31.89 Other specified degenerative diseases of nervous system; W19.XXXA Unspecified fall, initial encounter; Y93.89 Activity, other specified; Y92.89 Other specified places as the place of occurrence of the external cause; Y99.8 Other external cause status
CPT/HCPCS: 70450

== ENCOUNTER 2020-12-25 07:31 | Emergency (ER) | payer MEDICARE ==
[~2020-12-25] VITALS: Ht 190.5 cm; Wt 131.0 kg
[~2020-12-25 07:31] MED LIST changes: +AMLO-186 PO; -AMLO5TAB10 PO
--- NOTE | 2020-12-25 07:57 | PHYS DOC ---
Past Medical History Past Medical History: A-Fib Past Surgical History: No Surgical History, Other Additional Past Surgical Histo: poor historian Smoking Status: Former Smoker Alcohol Use: None General Adult EDM: Chief Complaint: CONSTIPATION HPI: HPI: 80 yo M PMH ICH/SDH 11/14 fall 12/3029, aAF on coumadin, HTN, BPH, peripheral neuropathy with chronic right proximal leg weakness/confined to wheelchair and PUD, presents to the ed with c/o constipation, last bowel movement was large (shows me with his hands an 1 ft x 6cm size bm), brown in color stating " I have the urge to go," but no relief with straining. Reports he tried MiraLAX on Friday twice with no improvement. States he never has constipation symptoms. Denies any alcohol abuse or known liver disease. Reports lower abdominal pain that is worse when he sits up and leans forward, relieved with lying flat that started last night. Is not taking anything for pain. Has no problems ur inating. Last INR was 2, still on Coumadin. Reports he is tolerating food, no associated nausea or vomiting. Review of Systems: Review of Systems: Constitutional: Denies fever or chills. [] Eyes: Denies change in visual acuity. [] HENT: Denies nasal congestion or sore throat. [] Respiratory: Denies cough or shortness of breath or hemoptysis Cardiovascular: Denies chest pain or edema. [] GI: Denies nausea, vomiting, melena, hematochezia or diarrhea. [] : Denies dysuria or dysuria, no saddle anesthesia Musculoskeletal: Denies back pain or joint pain. [] Integument: Denies rash or diaphoresis Neurologic: Denies headache, focal weakness or sensory changes. [] Endocrine: Denies polyuria or polydipsia. [] Lymphatic: Denies swollen glands. [] Psychiatric: Denies depression or anxiety. [] Heart Score: C/O Chest Pain: No Risk Factors: Risk Factors: DM, Current or recent (<one month) smoker, HTN, HLP, family history of CAD, obesity. Risk Scores: Score 0 - 3: 2.5% MACE over next 6 weeks - Discharge Home Score 4 - 6: 20.3% MACE over next 6 weeks - Admit for Clinical Observation Score 7 - 10: 72.7% MACE over next 6 weeks - Early Invasive Strategies Allergies: Allergies: Allergies Coded Allergies Type Severity Reaction Last Updated Verified No Known Drug Allergies 08/21/17 No Physical Exam: PE: Constitutional: Well developed, well nourished, no acute distress, non-toxic appearance. HENT: Normocephalic, atraumatic, Eyes: EOMI, conjunctiva normal, no discharge. Neck: Normal range of motion, supple, Cardiovascular: S1/2 present, regular rhythm Lungs & Thorax: Speaking in full sentences, bilateral equal chest rise, no tachypnea or increased work of breathing Abdomen: soft, no reproducible tenderness, soft, no peritonitis or rigidity, hepatosplenomegaly present, multiple areas of spider angiomas - no caput medusa, Skin: Warm, dry, no erythema, no rash. [] Back: No midline tenderness, no CVA tenderness. [] Extremities: No tenderness, no cyanosis, Neurologic: Alert and oriented X 3, normal motor function, normal sensory function, no focal deficits noted. [] Psychologic: Affect normal, judgement normal, mood normal. [] : circumsized, no rash, no penile/scrotal ttp EKG: EKG: [] Radiology/Procedures: Radiology/Procedures: IMAGING REPORT Signed PATIENT: ELENITA NUGENT ACCOUNT: [id number] : 1940 LOCATION: ER AGE: 80 SEX: M EXAM STATUS: REG ER ORD. PHYSICIAN: ELIDA GILLILAND DO REASON: constipation PROCEDURE: CT ABD PELV W/ORAL&IV CONTRAST Exam: CT abdomen/pelvis with intravenous contrast Indication: Constipation Comparison: CT abdomen and pelvis for 01/24/2017 Technique: Helical CT imaging performed of the abdomen and pelvis after the intravenous administration of 60 mL Omnipaque 300 contrast. Sagittal and coronal reformats were obtained. One or more of the following individualized dose reduction techniques were utilized for this examination: 1. Automated exposure control 2. Adjustment of the mA and/or kV according to patient size 3. Use of iterative reconstruction technique. Findings: Lower chest: Mild atelectasis in the left lower lobe. Heart is normal in size. Liver: Normal. No focal lesion. Gallbladder/Biliary Tree: The gallbladder and bile ducts are normal. Pancreas: Mild fatty atrophy of the pancreas is unchanged. Spleen: No splenomegaly. Adrenal Glands: Normal. Kidneys/Ureters/Bladder: Kidneys are normal in size and enhance symmetrically. There are simple cysts in the right kidney measuring up to 1.3 cm. No hydronephrosis. Ureters and bladder are normal. Reproductive Organs: Prostate gland is normal. Stomach, small bowel, and colon: Stomach is normal. There is no small bowel obstruction. Mild diverticulosis in the descending sigmoid colon. There is a large amount of stool in the rectum with pericolonic fat stranding, likely reflecting fecal impaction. Vasculature: No aortic aneurysm. Mild calcified aortic atherosclerosis. Lymph Nodes: There is no lymphadenopathy. Peritoneum and retroperitoneum: No free fluid or free air. Bones: There is no acute osseous abnormality. There is facet arthrosis in the lower lumbar spine. Mild degenerative joint disease of the hips. Impression: Large amount of stool in the rectum with pericolonic inflammation suspicious for fecal impaction. Electronically signed by: Katty Poe MD (12/25/2020 9:47 AM) [id number] DICTATED and SIGNED BY: KATTY POE MD DATE: 12/25/20 [id number] 0 Course & Med Decision Making: Course & Med Decision Making Pertinent Labs and Imaging studies reviewed. (See chart for details) Concern for constipation in the setting of fecal impaction. Labs unremarkable with no leukocytosis or elevated lipase. Drug screen normal with no urinary tract infection. Enema given in ED. Will DC with magnesium citrate and PMD follow-up in 24 to 48 hours. Patient is hemodynamically stable and has asymptomatic bradycardia. Will discharge home with strict ED return precautions were given for chest pain, dyspnea, syncope, neurologic deficits or severe pain. Encouraged urgent outpatient follow-up with PMD. Life-threatening processes were considered but are low suspicion at this time, given history, p hysical exam and ED workup. Pt was educated on all prescription medications and adverse effects. All patient's questions were answered and pt was stable at time of discharge. Life/limb-threatening differential includes but is not limited to, aortic disse ction, aortic aneurysm, acute coronary syndrome, surgical abdomen (appendicitis, cholecystitis, ischemic bowel, strangulated hernia, etc), bowel obstruction or volvulus, bladder outlet obstruction, gastrointestinal bleeding, inflammatory bowel disease, peptic ulcer disease, ACS/CAD, sepsis, diverticular disease, ureterolithiasis, nephrolithiasis, testicular torsion, or genitourinary infection. I spoken with the patient and her caregivers. I explained the patient's condition, diagnoses and treatment plan based on the information available to me at this time. I have answered the patient and her caregiver's questions and addressed any concerns. The patient and her caregivers have a good understanding of patient's diagnosis, condition and treatment plan as can be expected at this point. Vital signs have been stable. Patient's condition is stable and appropriate for discharge from the emergency department. Patient will pursue further outpatient evaluation with primary care physician or other designated or consulting physician as outlined in the discharge instructions. The patient and/or caregivers are agreeable to this plan of care and follow-up instructions have been explained in detail. The patient and/or caregivers have received these instructions in written form and have expressed an understanding of the discharge instructions. The patient and/or caregivers are aware that any significant change of condition or worsening of symptoms should prompt immediate return to this or the closest emergency department or call to 911. Raya Disclaimer: Raya Disclaimer: This electronic medical record was generated, in whole or in part, using a voice recognition dictation system. Departure Departure Impression: Primary Impression: Constipation Additional Impressions: Fecal impaction Sinus bradycardia Disposition: 01 DC HOME SELF CARE/HOMELESS Condition: STABLE Referrals: RAMANDEEP LEON MD (PCP) in 1-2 days for re-evaluation to re-check heart rate Patient Instructions: Constipation, Adult, Fecal Impaction Additional Instructions: EMERGENCY DEPARTMENT GENERAL DISCHARGE INSTRUCTIONS Thank you for coming to [facility] Emergency Department (ED) today and trusting us with you care. We trust that you had a positive experience in our Emergency Department. If you wish to speak to the department management, you may call the Director at [phone]. YOUR FOLLOW UP INSTRUCTIONS ARE FOLLOWS: 1. Do you have a private Doctor? If you do not have a private doctor, please ask for a resource list of physicians or clinics that may be able to assist you with follow up care. 2. The Emergency Physicain has interpreted your x-rays. The X-Ray specialist will also review them. If there is a change in the findings, you will be notified in 48 hours when at all possible. 3. A lab test or culture has been done, your results will be reviewed and you will be notified if you need a change in treatment. ADDITIONAL INSTRUCTIONS AND INFORMATION: 1. Your care today has been supervised by a physician who is specially trained in emergency care. Many problems require more than one evaluation for a complete diagnosis and treatment. We recommend that you schedule your follow up appointment as recommended to ensure complete treatment of you illness or injury. If you are unable to obtain follow up care and continue to have a problem, or if your condition worsens, we recommend that you return to the ED. 2. We are not able to safely determine your condition over the phone nor are we able to give sound medical advice over the phone. For these safety reasons, if you call for medical advice we will ask you to come to the ED for further evaluation. 3. If you have any questions regarding these discharge instructions please call the ED at [phone]. SAFETY INFORMATION: In the interest of safety, wellness, and injury prevention; we encourage you to wear your sealbelt, if you smoke; quite smoking, and we encourage family to use a protective helmet for bicycling and other sporting events that present an increased risk for head injury. IF YOUR SYMPTOMS WORSEN OR NEW SYMPTOMS DEVELOP, OR YOU HAVE CONCERNS ABOUT YOUR CONDITION; OR IF YOUR CONDITION WORSENS WHILE YOU ARE WAITING FOR YOUR FOLLOW UP APPOINTMENT; EITHER CONTACT YOUR PRIMARY CARE DOCTOR, THE PHYSICIAN WHOSE NAME AND NUMBER YOU WERE GIVEN, OR RETURN TO THE ED IMMEDIATELY. Scripts Magnesium Citrate (MAGNESIUM CITRATE) 296 Ml Solution 296 ML PO ONCE, #296 ML Drink half a bottle every 12 hours as needed for constipation Prov: ELIDA GILLILAND DO 12/25/20 Docusate Sodium (COLACE) 100 Mg Capsule 1 CAP PO BID for 5 Days, #10 CAP 0 Refills Prov: ELIDA GILLILAND DO 12/25/20 ELIDA GILLILAND DO Dec 25, 2020 07:57
[2020-12-25 08:21] LABS: BASO # 0.1 x10^3/uL (0.0-0.2); BASO % 1 % (0-3); EOS # 0.1 x10^3/uL (0.0-0.7); EOS % 1 % (0-3); HEMATOCRIT 47.8 % (39.0-53.0); HEMOGLOBIN 16.2 g/dL (13.0-17.5); LYMPH % 12 % (24-48); MEAN CORPUSCULAR HEMOGLOBIN 32 pg (25-35); MEAN CORPUSCULAR HGB CONC 34 g/dL (31-37); MEAN CORPUSCULAR VOLUME 94 fL (79-100); MONO # 0.7 x10^3/uL (0.0-1.1); MONO % 8 % (0-9); NEUT # 6.6 x10^3/uL (1.8-7.7); NEUT % 78 % (31-73); PLATELET COUNT 171 x10^3/uL (140-400); RED BLOOD COUNT 5.07 x10^6/uL (4.30-5.70); RED CELL DISTRIBUTION WIDTH 14.1 % (11.5-14.5); WHITE BLOOD COUNT 8.5 x10^3/uL (4.0-11.0)
[2020-12-25 08:31] LABS: CALCIUM 8.3 mg/dL (8.5-10.1); CREATININE 1.3 mg/dL (0.7-1.3); GFR 53.1; POTASSIUM 4.3 mmol/L (3.5-5.1)
[2020-12-25 08:37] LABS: ALBUMIN 3.2 g/dL (3.4-5.0); DIRECT BILIRUBIN 0.3 mg/dL (0.0-0.2); MAGNESIUM 2.3 mg/dL (1.8-2.4); TOTAL PROTEIN 6.9 g/dL (6.4-8.2)
[2020-12-25] MEDS ORDERED: CONTRAST GIVEN. MC PRN (08:45)
[2020-12-25] MEDS ORDERED: IOHEXOL 300 MG/ML 100ML VIAL. IV ONE (08:45)
[2020-12-25] MEDS ORDERED: IOHEXOL 240 MG/ML 50ML VIAL. PO ONE (08:45)
[2020-12-25 09:26] LABS: BARBITURATES NEG (NEG); BENZODIAZEPINES NEG (NEG); CANNABINOIDS NEG (NEG); COCAINE NEG (NEG); METHADONE NEG (NEG); OPIATES NEG (NEG); PHENCYCLIDINE NEG (NEG)
[2020-12-25 09:28] LABS: AMPHETAMINE/METHAMPHETAMINE NEG (NEG); BILIRUBIN,URINE NEGATIVE (NEG); CLARITY,URINE CLEAR; COLOR,URINE YELLOW; NITRITE,URINE NEGATIVE (NEG); PROTEIN,URINE NEGATIVE (NEG-TRACE)
[2020-12-25 09:49] LABS: BACTERIA,URINE 0 /HPF (0-FEW); RBC,URINE 0 /HPF (0-2); WBC,URINE 0 /HPF (0-4)
--- NOTE | 2020-12-25 09:49 | RAD ---
Exam: CT abdomen/pelvis with intravenous contrast Indication: Constipation Comparison: CT abdomen and pelvis for 01/24/2017 Technique: Helical CT imaging performed of the abdomen and pelvis after the intravenous administratio n of 60 mL Omnipaque 300 contrast. Sagittal and coronal reformats were obtained. One or more of the following individualized dose reduction techniques were utilized for this examinat ion: 1. Automated exposure control 2. Adjustment of the mA and/or kV according to patient size 3. Use of iterative reconstruction technique. Findings: Lower chest: Mild atelectasis in the left lower lobe. Heart is normal in size. Liver: Normal. No focal lesion. Gallbladder/Biliary Tree: The gallbladder and bile ducts are normal. Pancreas: Mild fatty atrophy of the pancreas is unchanged. Spleen: No splenomegaly. Adrenal Glands: Normal. Kidneys/Ureters/Bladder: Kidneys are normal in size and enhance symmetrically. There are simple cysts in the right kidney measuring up to 1.3 cm. No hydronephrosis. Ureters and bladder are normal. Reproductive Organs: Prostate gland is normal. Stomach, small bowel, and colon: Stomach is normal. There is no small bowel obstruction. Mild diverti culosis in the descending sigmoid colon. There is a large amount of stool in the rectum with pericolo malka fat stranding, likely reflecting fecal impaction. Vasculature: No aortic aneurysm. Mild calcified aortic atherosclerosis. Lymph Nodes: There is no lymphadenopathy. Peritoneum and retroperitoneum: No free fluid or free air. Bones: There is no acute osseous abnormality. There is facet arthrosis in the lower lumbar spine. Mil d degenerative joint disease of the hips. Impression: Large amount of stool in the rectum with pericolonic inflammation suspicious for fecal im paction. Electronically signed by: Katty Poe MD (12/25/2020 9:47 AM) [id number]
[2020-12-25] MEDS ORDERED: MAGN296S68 PO (11:48)
[2020-12-25] MEDS ORDERED: DOCU-109 PO (11:48)
[2020-12-25] MEDS ORDERED: SODIUM PHOSPHATES 19/7GM 133 ML ENEMA. PR ONE (12:30)
[2020-12-25 15:12] VITALS: BP 136/92
== END 2020-12-25 15:10 | disposition home or self-care (01) ==
LOC: ER 07:31
DX: K56.41 Fecal impaction (principal); R00.1 Bradycardia, unspecified; I48.20 Chronic atrial fibrillation, unspecified; Z87.891 Personal history of nicotine dependence; Z98.890 Other specified postprocedural states; Z79.899 Other long term (current) drug therapy
CPT/HCPCS: 36415; 74177; 80048; 80076; 80307; 81001; 82550; 83735; 85025; 99285; Q9966; Q9967